=== PATIENT | female | born 1990 | race African-American/Black ===

== ENCOUNTER 2021-01-31 12:32 | Emergency (ER) | payer MEDICAID ==
[~2021-01-31] VITALS: Ht 170.2 cm; Wt 95.1 kg
[2021-01-31 12:37] VITALS: BP 136/84
[2021-01-31] MEDS ORDERED: CEFTRIAXONE SODIUM 500 MG/VIAL IM ONE (13:00)
[2021-01-31] MEDS ORDERED: LIDOCAINE HCL 1% 20ML VIAL (Pyxis) INJ INFIL ONE (13:00)
[2021-01-31] MEDS: LIDOCAINE HCL 1% 10 MG/ML 10ML VIAL INJ NR ×2 (14:00→14:41)
[2021-01-31] MEDS ORDERED: DOXY100T2 MT (14:30)
[2021-02-03 04:11] LABS: NEISSERIA GONORRHOEAE NAA Negative (Negative)
== END 2021-01-31 14:44 | disposition home or self-care (01) ==
LOC: ER 12:32
DX: Z20.2 Contact with and (suspected) exposure to infections with a predominantly sexual mode of transmission (principal)
CPT/HCPCS: 87210; 87491; 87591; 96372; 99283; J0696; J3490